=== PATIENT | male | born 1985 | race Caucasian/White ===

== ENCOUNTER 2018-05-09 01:00 | Emergency (ER) | payer OTHER ==
[2018-05-09 01:12] VITALS: RESP 16; TEMP 96.5
[2018-05-09] MEDS ORDERED: HYDROMORPHONE HCL 2 MG/ML SOL IM ONE ×2 (01:42→01:45)
[2018-05-09] MEDS ORDERED: DIAZEPAM 5 MG TAB PO ONE (01:46)
[2018-05-09] MEDS ORDERED: HYDROMORPHONE 1 MG/ML SYRINGE ONE (01:46)
[2018-05-09] MEDS ORDERED: DIAZEPAM 5 MG TAB ONE (01:46)
[2018-05-09 02:16] VITALS: BP 123/70; PULSE 69; O2SAT 95
== END 2018-05-09 02:11 | disposition home or self-care (01) | DRG 563 ==
LOC: ED 01:00
DX: S39.012A Strain of muscle, fascia and tendon of lower back, initial encounter (principal)
CPT/HCPCS: 96372; 99282; 99283; A9270-GY; J1170